=== PATIENT | female | born 1940 | race Caucasian/White ===

== ENCOUNTER 2017-08-23 08:52 | Emergency (ER) | payer MEDICARE, OTHER ==
[~2017-08-23] VITALS: Ht 167.6 cm; Wt 43.5 kg
[~2017-08-23 08:52] MED LIST: ACET325T11 PO; ASPI81TA82 PO; FERR324T4 PO; LISI5 PO; METO100 PO; MULT-4 PO; PRAV40TA2 PO
[2017-08-23 09:04] VITALS: BP 182/98; PULSE 100; RESP 15; TEMP 97.5; O2SAT 96
[2017-08-23] MEDS ORDERED: VENTAER INH ×2 (09:22→09:39)
--- NOTE | 2017-08-23 09:27 | PD ---
HPI Chief Complaint: Skin Problem Time Seen by Provider: 09:08 Travel History International Travel<30 days: No Contact w/Intl Traveler<30days: No Traveled to known affect area: No History of Present Illness HPI This 77-year-old female complaining of a painful area on her left foot. This has been present for about a week. It has become painful. She has a history of coronary bypass grafting 3 about 3 years ago. She does smoke cigarettes. She has a lot of pain when she walks on her foot. She has had to walk on the heel. She has taken Tylenol and Aleve for the pain without much response. She is also taken some tramadol which has not helped she has noted the area has become reddish purple. There has not been any fever or chills. She has had about a 30 pound weight loss in the last few years. She sees Dr. Phoenix. Apparently after her bypass surgery she did not eat well for about a year afterwards. She has a history of hypertension and is supposed to be on lisinopril but does not take it because she says it makes her tired. She is also supposed to be on atorvastatin. She does have her pain in her feet and legs when walking PFSH Past Medical History Asthma: Yes Heart Rhythm Problems: No Cancer: No Cardiac Catheterization: No Cardiovascular Problems: No High Cholesterol: Yes Congestive Heart Failure: No Cerebrovascular Accident: No Coronary Artery Disease: Yes Diabetes: Yes (PRE) Patient Takes Glucophage: No Diminished Hearing: No Endocrine: No Hypertension: Yes Immune Disorder: Yes Musculoskeletal: No Neurologic: No Psychiatric: No Respiratory: No Tetanus Vaccination: > 5 Years Past Surgical History Cardiac Surgery: No Coronary Artery Bypass Graft: Yes (TRIPLE BYPASS) Endocrine Surgery: Yes (partial thyroid surgery) Gynecologic Surgery: Yes (hystorectomy) Hysterectomy: Yes Pacemaker: No Thoracic Surgery: No Other Surgery: Yes Social History Alcohol Use: Yes (occ) Tobacco Use: Yes (11/02 ppd) Substance Use: No Allergies-Medications (Allergen,Severity, Reaction): Coded Allergies: No Known Allergies (Verified , 08/23/17) Reported Meds & Prescriptions Reported Meds & Active Scripts Active Reported Ventolin Hfa 18 GM Inh (Albuterol Sulfate) 90 Mcg/Act Aer 2 Puff INH Q4-6H PRN Review of Systems General / Constitutional: No: Fever, Chills Eyes: No: Diploplia, Blurred Vision HENT: No: Headaches Cardiovascular: No: Chest Pain or Discomfort, Palpitations Respiratory: No: Cough, Shortness of Breath Gastrointestinal: No: Vomiting, Diarrhea Genitourinary: No: Urgency, Frequency Musculoskeletal: Positive: Pain, No: Myalgias, Arthralgias Skin: Positive Rash Neurologic: No: Syncope Endocrine: No: Heat Intolerance Hematologic/Lymphatic: No: Easy Bruising Physical Exam Narrative GENERAL: Thin female in no acute distress SKIN: Focused skin assessment warm/dry. HEAD: Atraumatic. Normocephalic. EYES: Pupils equal and round. No scleral icterus. No injection or drainage. ENT: No nasal bleeding or discharge. Mucous membranes pink and moist. NECK: Trachea midline. No JVD. GASTROINTESTINAL: Abdomen soft, non-tender, nondistended. Hepatic and splenic margins not palpable. MUSCULOSKELETAL: No obvious deformities. No clubbing. No cyanosis. No edema. There is an area of erythema involving the plantar surface of the foot. It is about a centimeter in diameter. There is a dorsalis pedal pulses couldn't be obtained with Doppler bilaterally though it is weak bilaterally. She does have some swelling of her right leg which has been present since her bypass surgery as this is the leg with the pain was harvested. There is no pain to compression. There is no leg bilaterally NEUROLOGICAL: Awake and alert. No obvious cranial nerve deficits. Motor grossly within normal limits. Normal speech. PSYCHIATRIC: Appropriate mood and affect; insight and judgment normal. Data Data Last Documented VS Vital Signs Date Time Temp Pulse Resp B/P (MAP) Pulse Ox O2 Delivery O2 Flow Rate FiO2 08/23/17 09:22 Room Air 08/23/17 09:04 97.5 100 15 182/98 (126) 96 MDM Medical Decision Making Medical Screen Exam Complete: Yes Emergency Medical Condition: Yes Medical Record Reviewed: Yes Differential Diagnosis Differential includes cellulitis, pressure ulcer, arterial insufficiency Narrative Course I believe this may be an impending ulceration secondary to poor circulation. She does have dorsalis pedal pulses bilaterally. I have stressed to her the importance that she stop smoking. I recommended that she take aspirin every day. I do think she should follow-up with vascular surgery. She will be placed on Keflex in the event there is some infection. She also wants medication for pain. She has already tried Tylenol and Aleve without response Diagnosis Primary Impression: Cellulitis of left leg Additional Impression: Vascular insufficiency of extremity Referrals: Too Hodges MD Additional Instructions: take aspirin daily, follow up with Dr Phoenix, I think you need referral for evaluation by vascular surgery Scripts Hydrocodone-Acetaminophen (Lortab) 5-325 Mg Tab 1 TAB PO Q6H Y for PAIN, #30 TAB 0 Refills Prov: Juno Rodriguez MD 08/23/17 Cephalexin (Keflex) 500 Mg Cap 500 MG PO Q6H for Infection, #28 CAP 0 Refills Prov: Juno Rodriguez MD 08/23/17 Hydrochlorothiazide (Hydrochlorothiazide) 25 Mg Tab 25 MG PO DAILY for 30 Days, #30 TAB 0 Refills Prov: Juno Rodriguez MD 08/23/17 Albuterol 18 GM Inh (Ventolin Hfa 18 GM Inh) 90 Mcg/Act Aer 2 PUFF INH Q4H Y for SHORTNESS OF BREATH, #1 INHALER 0 Refills Prov: Juno Rodriguez MD 08/23/17 Disposition: 01 DISCHARGE HOME Condition: Stable Juno Rodriguez MD Aug 23, 2017 09:27
[2017-08-23] MEDS ORDERED: HYDR25TA5 PO (09:39)
[2017-08-23] MEDS ORDERED: HYDR-3533 PO (09:39)
[2017-08-23] MEDS ORDERED: CEPH-460 PO (09:39)
--- NOTE | 2017-08-23 10:24 | RADRPT ---
EXAM DATE/TIME: 08/23/2017 09:50 [facility] COMPARISON: No previous studies available for comparison. INDICATIONS : Left foot pain & sore on plantar surface of foot near metatarsal phalangeal joint. MEDICAL HISTORY : Hypercholesterolemia. CAD. Asthma. Pre diabetic. Smoker. SURGICAL HISTORY : CABG. Hysterectomy. Partial thyroidectomy. ENCOUNTER: Initial ACUITY: 3 days PAIN SCORE: 8/10 LOCATION: Left plantar foot FINDINGS: 3 views of the left foot reveal diffuse and pronounced osteopenia. No fracture or dislocation is obse rved. No discrete cortical destruction or lucency. Soft tissues are unremarkable. Some calcifications of the plantar fascia noted. No radiopaque foreign bodies. No air within the soft tissues. CONCLUSION: Pronounced osteopenia. No radiographic evidence to clearly suggest osteomyelitis. Alexx Hathaway Jr., MD on August 23, 2017 at 10:20 Board Certified Radiologist. This report was verified electronically.
[2017-08-23 10:54] VITALS: BP 211/94
== END 2017-08-23 10:57 | disposition home or self-care (01) ==
LOC: PHED 08:52
DX: L03.116 Cellulitis of left lower limb (principal); I73.9 Peripheral vascular disease, unspecified; I10 Essential (primary) hypertension; I25.10 Atherosclerotic heart disease of native coronary artery without angina pectoris; F17.210 Nicotine dependence, cigarettes, uncomplicated
CPT/HCPCS: 73630; 99284